=== PATIENT | female | born 1985 | race Caucasian/White ===

== ENCOUNTER 2018-09-17 18:01 | Emergency (ER) | payer MEDICAID ==
[~2018-09-17 18:01] MED LIST: DIPH25CA83 PO; PRED20TA PO; PRED50TA PO
== END 2018-09-17 20:25 | disposition left against medical advice (07) ==
LOC: ER 18:02
DX: O26.899 Other specified pregnancy related conditions, unspecified trimester (principal); Z3A.00 Weeks of gestation of pregnancy not specified; Z53.21 Procedure and treatment not carried out due to patient leaving prior to being seen by health care provider